=== PATIENT | male | born 1975 | race Hispanic/Latino ===

== ENCOUNTER 2024-08-18 14:21 | Emergency (ER) | payer SELFPAY ==
[~2024-08-18] VITALS: Ht 167.6 cm; Wt 108.9 kg
[~2024-08-18 14:21] MED LIST: PEPCID40 MG PO
[2024-08-18 15:20] VITALS: PULSE 59; RESP 16; TEMP 98; O2SAT 100
[2024-08-18 16:32] LABS: BASOPHILS % 0.7 % (0.0-1.0); EOSINOPHILS % 1.8 % (0.0-6.0); LYMPHOCYTES % 34.0 % (18.0-39.1); MONOCYTES % 8.2 % (4.4-11.3); NEUTROPHILS % 55.2 % (38.7-80.0); RED CELL DISTRIBUTION WIDTH 13.7 % (11.7-14.4)
[2024-08-18] MEDS: SODIUM CHLORIDE 0.9% 1000ML 1,000 ML IV STA (16:41)
[2024-08-18 16:47] LABS: INR 1.07
[2024-08-18 16:59] LABS: EST GLOMERULAR FILTRATION RATE 108.0 ML/MIN (>=60)
[2024-08-18] MEDS ORDERED: FIORICET 50-301 EACH PO (17:30)
[2024-08-18] MEDS: KETOROLAC TROMETHAMINE 30 MG/ML VIAL IV STA (17:38)
== END 2024-08-18 17:48 | disposition home or self-care (01) ==
LOC: ER 15:52
DX: R51.9 Headache, unspecified (principal); R20.0 Anesthesia of skin; M54.50 Low back pain, unspecified
CPT/HCPCS: 36415; 70450; 80053; 82550; 83735; 84484; 85025; 85610; 85730; 99284; J1885; J7030